=== PATIENT | female | born 1955 | race Caucasian/White ===

== ENCOUNTER 2016-12-21 14:07 | Inpatient (IN) | payer BC, OTHER ==
[2016-12-21 15:26] LABS: #Lymphocytes 0.3 thou/uL (1.20-3.40); #Neutrophils 7.2 thou/uL (1.40-6.50); %Eosinophils 0.2 % (0.0-10.0); %Lymphocytes 3.9 % (21.0-51.0); %Monocytes 0.2 % (0.0-10.0); Hematocrit 31.8 % (36.0-47.0); White Blood Cell (WBC) Count 7.5 thou/uL (4.8-10.8)
--- NOTE | 2016-12-21 15:27 | RAD ---
CHEST 1 VIEW: HISTORY: Fever. Driving home, near-syncope with hypotension. Stage IV bile duct cancer. COMPARISON: None. FINDINGS: Port catheter is in place with tip in good position. No pneumothorax. There is a nodular area left lung base. There is a density, possibly a gastric band, projecting ove r the left upper quadrant of the abdomen. IMPRESSION: Some faint left lower lobe densities may represent atelectasis or pneumonia. Followup recommended. POS: OFF
[2016-12-21 15:36] LABS: Lactic Acid - Sepsis 1.8 mmol/L (0.5-2.2)
[2016-12-21 15:42] LABS: ALT (SGPT) 14 U/L (8-55); AST (SGOT) 41 U/L (5-34); Alkaline Phosphatase 131 U/L (40-150); Anion Gap 17 mmol/L (10-20); BUN (Urea Nitrogen) 17 mg/dL (9.8-20.1); Bilirubin, Total 0.8 mg/dL (0.2-1.2); Calc. Creatinine Clearance 0 mL/min (70-130); Calcium 9.6 mg/dL (7.8-10.44); Carbon Dioxide 21 mmol/L (23-31); Chloride 101 mmol/L (98-107); Estimated GFR-MDRD 73; Globulin 3.3 g/dL (2.4-3.5); Protein, Total 7.1 g/dL (6.0-8.3)
[2016-12-21 16:32] LABS: Bilirubin Negative (Negative); Blood, Urine Trace (Negative); Glucose, Urine (Dipstick) Negative (Negative); Ketone, Urine Negative (Negative); Nitrite Negative (Negative); Protein, Urine (Dipstick) 30 mg/dL (Neg-Trace)
[2016-12-21 16:34] LABS: Bacteria/HPF None Seen HPF (None Seen); Hyaline Casts/LPF 4-6 HYALINE CAST LPF (0-3 Hyaline); RBC/HPF 0-3 HPF (0-3); Squamous Epithelial 0-3 HPF (0-3); WBC/HPF 0-3 HPF (0-3)
[2016-12-21] MEDS ORDERED: Naproxen 500 MG TAB ONE (17:11)
[2016-12-21] MEDS ORDERED: Bisacodyl 5 MG TAB PO PRN (18:23)
[2016-12-21] MEDS ORDERED: Acetaminophen 325 MG TAB PO PRN (18:23)
[2016-12-21] MEDS ORDERED: Mag-Al 1200 mg/1200 mg/30 ML UDCUP PO PRN (18:23)
[2016-12-21] MEDS ORDERED: Ondansetron ODT 4 MG TAB PO PRN (18:23)
[2016-12-21 19:10] VITALS: BMI 43.9
[2016-12-21] MEDS: Sodium Chloride 0.9% 1,000 ML IV SCH (20:30)
[2016-12-21 20:34] LABS: IRF 0.374 Ratio (0.163-0.362); Reticulocyte Count 2.3 % (0.5-1.5)
[2016-12-21] MEDS ORDERED: Docusate 100 MG CAP PO SCH (21:00)
[2016-12-21 21:04] LABS: Band 23 % (5-11); Hematocrit 27.9 % (36.0-47.0); Mean Platelet Volume 8.4 fL (7.4-10.4); Neutrophil 76 % (42-75); Red Blood Cell (RBC) Count 3.27 mill/uL (4.20-5.40); Vacuoles SLIGHT; White Blood Cell (WBC) Count 25.3 thou/uL (4.8-10.8)
[2016-12-21 22:15] LABS: Troponin I Less than 0.010 ng/mL (< 0.028)
[2016-12-21] MEDS ORDERED: traMADol HCl 50 MG TAB PO PRN (22:54)
[2016-12-21] MEDS ORDERED: Naproxen 500 MG TAB PO PRN (23:39)
[2016-12-21] MEDS ORDERED: diphenhydrAMINE HCl 25 MG CAP PO PRN (23:39)
[2016-12-21] MEDS ORDERED: Loratadine 10 MG TAB PO PRN (23:39)
[2016-12-21] MEDS ORDERED: Linezolid 600 MG in Premix Bag 1 BAG IVPB SCH (23:45)
--- NOTE | 2016-12-21 23:47 | CT ---
NONCONTRAST CHEST CT: History: 61-year-old female with history of fever and near syncope. History of Stage IV bile duct cancer. FINDINGS: Noncontrast study was performed, apparently because of patient's history of allergy. A noncontrast CT scan of the chest absolutely cannot evaluate for the presence or absence of pulmona ry embolism. There are multiple bilateral pulmonary nodules up to 0.8 cm, evidence for bilateral pul monary metastasis. There is a right subclavian catheter and injection port. Lap band in place. Post op cholecystectomy. No evidence for an overt mediastinal mass. No pleural effusion or pericardial effusion. IMPRESSION: Multiple bilateral pulmonary metastases. The possibility of pulmonary embolism absolutely cannot be evaluated on a chest CT without IV contrast. If that remains a clinical concern, I would recommend t reating the patient with allergy pre-treatment and performing a post contrast CT pulmonary angiogram or consider the possibility of a ventilation perfusion lung scan. Other findings as above. POS: JUANITA
[2016-12-22] MEDS: Sodium Chloride 0.9% 1,000 ML IV SCH ×4 (02:10→23:44)
[2016-12-22] MEDS: Cefepime 2 GM in Sodium Chloride 0.9% 100 ML IVPB SCH ×2 (03:15→15:52)
[2016-12-22 04:54] LABS: #Lymphocytes 0.5 thou/uL (1.20-3.40); #Monocytes 0.8 thou/uL (0.11-0.59); #Neutrophils 18.7 thou/uL (1.40-6.50); %Basophils 0.2 % (0.0-1.0); %Eosinophils 0.1 % (0.0-10.0); %Lymphocytes 2.6 % (21.0-51.0); %Monocytes 3.8 % (0.0-10.0); Hematocrit 25.9 % (36.0-47.0); Mean Platelet Volume 8.1 fL (7.4-10.4); Red Blood Cell (RBC) Count 3.01 mill/uL (4.20-5.40)
[2016-12-22 05:19] LABS: ALT (SGPT) 14 U/L (8-55); AST (SGOT) 40 U/L (5-34); Alkaline Phosphatase 96 U/L (40-150); Anion Gap 11 mmol/L (10-20); BUN (Urea Nitrogen) 12 mg/dL (9.8-20.1); Bilirubin, Total 0.6 mg/dL (0.2-1.2); Calc. Creatinine Clearance 164 mL/min (70-130); Calcium 8.6 mg/dL (7.8-10.44); Carbon Dioxide 21 mmol/L (23-31); Chloride 111 mmol/L (98-107); Estimated GFR-MDRD Greater than 90; Globulin 2.7 g/dL (2.4-3.5); Protein, Total 5.9 g/dL (6.0-8.3)
--- NOTE | 2016-12-22 05:52 | HP-2 ---
DATE OF ADMISSION: 12/21/2016 DATE OF SERVICE: 12/21/2016 CO-SIGNER: Timo Cherry M.D. CODE STATUS: FULL. PRIMARY CARE PHYSICIAN: Out of town from [place]. ATTENDING: Timo Cherry M.D. PGY-1: Lali Figueroa MD HISTORIAN: Patient. SPECIALIST: [facility], Dr. Broussard (primary physician) and Dr. Aguillon (trial M.D.). CHIEF COMPLAINT: Weakness. HISTORY OF PRESENT ILLNESS: A 61-year-old female with past medical history of cholangiocarcinoma wi th lung and liver mets, stage IV cholangiocarcinoma, hypertension and depression, presents with weak ness, nausea, and fatigue after shopping at a rest stop on her way back from getting labs performed at [facility]. Patient reports that she gets labs drawn twice a week at [facility] in regard to a clinical trial that she is completing there at this time. The patient also reports that she gets i nfusion treatments every 3 weeks and last week on Wednesday received a transfusion of packed red blood cells for a low hemoglobin. In regard to today, the patient said she felt weak and lightheaded and nauseous, which prompted her to visit the ED here. She was on her way back home to [place] from [facility] in [place]. She denies cough, congestion, fever, chest pain. She endorses some shortness of breath with exertion which has been going on for several weeks. She did desire a transfer closer to home in [place] however, the hospital in [place] was at full capacity. In the ER, the patient rec eived Naproxen, cefepime, and and 2 liters of normal saline. 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 PAST SURGICAL HISTORY: Cholecystectomy, hysterectomy, right knee replacement, lap band surgery. Co paulino and liver resection secondary to her cancer. ALLERGIES: ACETAMINOPHEN, IBUPROFEN, VANCOMYCIN (rash and throat itching), IV CONTRAST. MEDICATIONS: 1. Biotin. 2. Vitamin D 400 units. 3. Benadryl. 4. Colace. 5. Iron. 6. Claritin. 7. Naproxen. 8. Protonix 40 mg daily. 9. Tramadol 50 mg as needed for pain. 10. Valsartan/hydrochlorothiazide 320/12.5 mg daily. 11. Venlafaxine 275 mg daily. 12. Zofran 8 mg p.r.n. 13. Prednisone 50 mg taken before receiving contrast for CT. 14. Triamcinolone. FAMILY HISTORY: Noncontributory. SOCIAL HISTORY: Denies tobacco, alcohol, or drug use. REVIEW OF SYSTEMS: General: Endorses a decrease in appetite. Denies fevers and chills. Denies ni ght sweats. Endorses fatigue. Eyes: Denies vision changes or eye pain. ENT: Denies nasal conges tion, rhinorrhea, and sore throat. Respiratory: Denies cough, congestion. Endorses shortness of b reath, endorses exercise intolerance. Cardiovascular: Denies chest pain, palpitations, edema. GI: Endorses nausea, denies vomiting, diarrhea, constipation. Endorses some abdominal pain. Genitour inary: Denies incontinence, dysuria. Endorses polyuria. Denies discharge. Skin: Denies rashes, lesions, jaundice, itching. Musculoskeletal: Denies pain, tenderness, stiffness, swelling, arthral gias, endorses tremors. Neurologic: Endorses weakness. Denies numbness, syncope, seizures. Endor ses lightheadedness. Psychiatric: Denies anxiety, endorses depression. PHYSICAL EXAMINATION: VITAL SIGNS: Blood pressure 147/85, pulse of 107, respiratory rate 26, T-max 103, pulse ox 95% on r oom air, current weight 112 kilograms. GENERAL: Alert and oriented x4, no apparent distress. Well-developed, well-nourished, appropriatel y interactive. EYES: PERRLA, EOMI. Conjunctivae within normal limits. ENT: Tympanic membrane without bulging or erythema. Nasal mucosa within normal limits. Oropharynx within normal limits. NECK: Supple, no adenopathy, no thyromegaly, no bruits. CARDIOVASCULAR: Tachycardic, 2/6 systolic murmur. 2+ radial and pedal pulses. RESPIRATORY: Normal effort, no retractions, clear to auscultation bilaterally. SKIN: Warm and dry. No cyanosis or lesions. ABDOMEN: Soft, nontender to palpation. Bowel sounds in all 4 quadrants. No distension. No CVA te nderness. EXTREMITIES: No clubbing, cyanosis or edema. MUSCULOSKELETAL: Structure within normal limits. Tone within normal limits, 5/5 strength. Full ra nge of motion. NEUROLOGIC: No focal deficits. Sensation within normal limits, intact. Her cranial nerves II-XII intact. GCS 15. PSYCHIATRIC: Appropriate. LABORATORY DATA: CBC, white blood cell count 7.5, hemoglobin 10.2, hematocrit 38.1, platelets 267. Chemistry: Sodium 135, potassium 3.9, chloride 101, bicarbonate 21, BUN 17, creatinine 0.8, glucose 115, calcium 9.6, AST 41, ALT 14, alkaline phosphatase 131, total protein 7.1, albumin 3.8, total b ilirubin 0.8. Lactic acid 1.8, prior CBC on 12/14. White blood cell count 8.4, hemoglobin 8.5, hem atocrit 28.3, platelets 300. UA: Specific gravity 1.016, trace blood, 30 protein, small leukocyte esterase, no nitrites, no keto gisel, no glucose, no red blood cells, no white blood cells, no bacteria. EKG: Normal sinus rhythm. Chest x-ray faint lower lobe densities, atelectasis versus pneumonia. 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 1. Sepsis of unknown source. Differential diagnosis: Left lower pneumonia versus infusion port in fection versus delayed transfusion reaction versus pulmonary embolism. The patient is on immunomodu lators for her clinical trial regarding her cholangiocarcinoma with mets. The patient was started o n empiric antibiotic treatment of Levaquin, cefepime, and linezolid. A CT chest without contrast wa s ordered to evaluate advancement of metastasis to her lungs as well as evaluate for PE; however, th e patient is allergic to CONTRAST, but usually takes prednisone prior to receiving. Chest CT is wel l notified in the Medicine team, so they can further workup potential for pulmonary embolism (CT ayde st with contrast versus ventilation perfusion scan). Additional labs were ordered for hemolysis wor kup including LDH, peripheral smear, haptoglobin, retic count and indirect and direct Chary. The p atient was placed on sepsis maintenance fluids of 13 mg/kg. A repeat CBC and CMP were placed around in the morning. Blood cultures and urine cultures and port cultures were drawn. Patient was provi ded with tramadol p.r.n. for pain. 2. Stage IV cholangiocarcinoma with mets to her lungs and liver. Patient is on the immunomodulator therapy in a clinical trial at [facility]. The patient also received tramadol for pain. 3. Hypertension. We will restart patient's home medications. 4. Depression. We will restart patient's venlafaxine. 5. Gastroesophageal reflux disease. We will restart patient's Protonix. DISPOSITION AND LENGTH OF STAY: 3 days. Symptomatic medications will be provided. History and physical exam as well as management was discussed with Dr. Cherry.
--- NOTE | 2016-12-22 06:25 | PDOC.FM ---
Addendum entered and electronically signed by Ashley Rios DO 12/22/16 08 :45: Note: patient allergic to vancomycin Original Note: - Subjective Subjective: Patient doing fantastic this AM. No significant overnight events. She feels great. She was sitting in chair by bed this AM. She says she is much improved. Her fatigue has resolved and she feels back to normal. - Objective MAR Reviewed: Yes Vital Signs & Weight: Vital Signs (12 hours) Temp Pulse Resp BP Pulse Ox 12/22/16 04:00 98.1 F 80 16 100/56 L 96 12/22/16 00:57 98.6 F 82 18 107/61 94 L 12/21/16 23:45 98.6 F 82 18 107/61 94 L 12/21/16 20:48 99.7 F H 104 H 16 98 Result Diagrams: 12/22/16 04:44 12/22/16 04:44 Radiology Reviewed by me: Yes <Ashley Rios - Last Filed: 12/22/16 08:25> - Objective Vital Signs & Weight: Vital Signs (12 hours) Temp Pulse Resp BP Pulse Ox 12/23/16 07:48 99 F 83 16 97 12/23/16 07:42 99 F 83 16 161/75 H 97 12/23/16 04:00 98.7 F 82 18 122/72 97 12/23/16 00:00 98.7 F 70 18 111/62 100 12/22/16 23:59 98.7 F 70 18 111/62 100 I&O: 12/22/16 12/23/16 12/24/16 06:59 06:59 06:59 Intake Total 1205 4300 Balance 1205 4300 Result Diagrams: 12/23/16 04:30 12/23/16 04:30 <Jose Rafael Ramsey - Last Filed: 12/23/16 09:06> Phys Exam - Physical Examination Constitutional: NAD HEENT: moist MMs, sclera anicteric Neck: supple, full ROM Respiratory: no wheezing, no rales, no rhonchi, clear to auscultation bilateral Cardiovascular: RRR 2/6 systolic murmur Gastrointestinal: soft, non-tender, no distention, positive bowel sounds Musculoskeletal: no edema, pulses present Neurological: moves all 4 limbs Psychiatric: normal affect, A&O x 3 Skin: no rash, normal turgor, cap refill <2 seconds <Ashley Rios - Last Filed: 12/22/16 08:25> Dx/Plan (2) Normocytic normochromic anemia Code(s): D64.9 - ANEMIA, UNSPECIFIED Status: Acute Plan: -Hemolysis workup to include haptoglobin, LDH, reticulocyte index, indirect mik -Likely 2/2 anemia of chronic disease (3) Sepsis without acute organ dysfunction Code(s): A41.9 - SEPSIS, UNSPECIFIED ORGANISM Status: Resolved Plan: -Likely 2/2 LLL pneumonia vs. port infection vs. delayed hemolytic infusion reaction vs. pulmonary embolism -Chest xray: LLL infiltrate -Chest CT: Bilateral pulmonary mets from cholangiocarcinoma -Lactic acid: 1.8 -Tachycardic, tachypneic, elevated WBC -Hemolysis studies show reticulocyte index of 2.3; BM responsive -Fluid resuscitated with 30 ml/kg NS -Fluid maintenance at 13 ml/kg NS -Blood and urine cultures pending -Consider VQ perfusion scan or pretreatment prior to CT angio as patient is allergic to IV contrast; rule out PE (4) 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 Code(s): C78.00 - SECONDARY MALIGNANT NEOPLASM OF UNSPECIFIED LUNG; C22.1 - INTRAHEPATIC BILE DUCT CARCINOMA Status: Acute Plan: -Stage 4 -On immunomodulator therapy trial at [facility] -Mets to bilateral lungs -Last session of chemotherapy >5 weeks ago (5) HTN (hypertension) Code(s): I10 - ESSENTIAL (PRIMARY) HYPERTENSION Status: Acute Plan: -Continue valsartan, HCTZ -Monitor BP (6) Depression Code(s): F32.9 - MAJOR DEPRESSIVE DISORDER, SINGLE EPISODE, UNSPECIFIED Status : Acute Plan: -Continue venlafaxine (7) Left lower lobe pneumonia Code(s): J18.1 - LOBAR PNEUMONIA, UNSPECIFIED ORGANISM Status: Acute Plan: -Sepsis 2/2 LLL pneumonia -WBC 25 in immunocompromised patient ->90% neutrophils and 23% bands -Tachycardic, tachypneic -Patient on immunomodulator therapy at [facility] -Emperic treatment with cefepime, levoquin -Blood cultures pending -CXR shows LLL infiltrate -Chest CT shows bilateral pulmonary mets from cholangiocarcinoma -Consider procalcitonin -Consult infectious disease; Dr. Santacruz for recommendations regarding MRSA coverage <Ashley Rios - Last Filed: 12/22/16 08:25> Attending Addendum - Attending Addendum I personally evaluated the patient and discussed the management on DOS 12/[address] Rios. I agree with the History, Examination, Assessment and Plan documented above with any addition or exceptions noted below. At the time of my exam around 10:40 am she feels great. Sitting up in chair talking on phone. Lung: CTA on my exam. No rales, rhonchi or wheezes. Cor: RRR. Abdomen: soft, nontender. CXR LLL infitrate. CT report only mentions lung mets. Continue antibiotics. Dr. Santacruz consulted for antibiotic recommendations /consider addition of Zyvox. [facility] [place] [facility] <Jose Rafael Ramsey - Last Filed: 12/23/16 09:06>
[2016-12-22] MEDS: Valsartan 80 MG TAB PO SCH (08:36)
[2016-12-22] MEDS: Docusate 100 MG CAP PO SCH (08:36)
[2016-12-22] MEDS: Hydrochlorothiazide 25 MG TAB PO SCH (08:37)
[2016-12-22] MEDS: Venlafaxine HCl XR 75 MG CAP PO SCH (08:37)
[2016-12-22] MEDS: Enoxaparin Sodium 40 MG/0.4 ML SYRINGE SC SCH (08:38)
[2016-12-22] MEDS ORDERED: FLU VACC QS2017-18 36 mo. & older 0.5 ML SYRINGE IM ONE (09:00)
[2016-12-22] MEDS ORDERED: Potassium Chloride 20 MEQ TAB PO SCH ×2 (09:15→18:00)
--- NOTE | 2016-12-22 18:06 | CON ---
DATE OF CONSULTATION: 12/22/2016 REASON FOR CONSULTATION: Chills with leukocytosis. HISTORY OF PRESENT ILLNESS: A 61-year-old who has a history of metastatic cholangiocarcinoma with t he involvement of lungs and liver mostly, who is currently receiving experimental treatment at [facility] with some form of immunotherapy. The patient has a port in place for the past 3 years and joshua gomez was in her usual state of health returning from her latest visit to [facility] when she developed chills while stopping at a convenience store on the way to her home in [place]. She has had a gener al malaise with dizziness and could not get up from the toilet and called her and he came an d picked her up and had to bring her to [facility] because [facility] had no beds available. She was given IV cefepime and IV fluids and initial findings, BP 147/85, pulse 107, respiratory rat e 26, T-max 103, pulse 95% and the pertinent findings on the examination, she had a 2/6 systolic mur mur. Lung examination is normal. Abdomen is soft and nontender and initial laboratory data with a sodium of 135, creatinine 0.8, AST 41, ALT 14, and albumin 3.8. White cell count was 7.5, hemoglobi n 10.2, MCV 86, platelets 267 with 95% neutrophils. Urinalysis with 0-3 wbc's and 30 protein and we have 2 sets of blood cultures thus far no growth and urine culture no growth at [address] showed a few nodules consistent with metastatic cholangiocarcinoma, those are quite small. Current ly, Mr. uSe is sitting up by the bedside. She feels much improved and back to baseline pretty mu ch. No headaches, no visual symptoms, sore throat, odynophagia, dysphagia, no back pain, no cough o r sputum production or chest pain. No abdominal pain, diarrhea, or genitourinary symptoms. No join t symptoms. No neurological symptoms. PAST MEDICAL HISTORY: Metastatic cholangiocarcinoma, hypertension, depression. PAST SURGICAL HISTORY: Cholecystectomy, hysterectomy, knee replacement, Lap-Band surgery, colon and liver resection. ALLERGIES: IBUPROFEN, IODINE CONTRAST DYE, and VANCOMYCIN. MEDICATIONS: Biotin, vitamin D, Benadryl, Colace, iron, Claritin, naproxen, Protonix, tramadol, ariane sartan, hydrochlorothiazide, venlafaxine, Zofran, prednisone. FAMILY HISTORY: Noncontributory. SOCIAL HISTORY: Never smoker. PHYSICAL EXAMINATION: VITAL SIGNS: The temperature max 99.7, currently 98.5, blood pressure 118/77, pulse 90, respiration s 18, O2 sat 94%-96%. GENERAL: Appears in no distress. SKIN: A port is accessed. Skin examination is, otherwise, unremarkable. Port site without inflamm atory changes. No lymphadenopathy. HEENT: Ocular movements are conjugate. Sclerae white. Oral cavity moist, numerous teeth in place in fairly decent shape. NECK: Supple, no jugular venous distention or carotid bruits. LUNGS: With symmetric clear breath sounds. HEART: S1, S2, regular rate without murmurs. No S3 or S4. ABDOMEN: Soft, not distended or tender. No ascites. No bladder distention. EXTREMITIES: No joint inflammatory activity. The patient has trace edema in lower extremities. Pu lses are 1+ in dorsalis pedis. Plantar responses are flexor. No clonus. Strength in upper and low er extremities is 5/5. Cognitive function is intact. LABORATORY DATA: White cell count went up to 25,000, down to 20,000, hemoglobin 8, platelets 221, 9 2% neutrophils. Repeat chemistry with some decrease in potassium. Other than that unremarkable. ASSESSMENT: 1. Cholangiocarcinoma, metastatic lungs and liver. 2. Fever with chills, but no focal symptoms, otherwise. DISCUSSION: Differential diagnosis includes transient bacteremia with the source yet to be determin ed. Blood cultures are still pending. The ports, the biliary tracts are the main candidates. If t he blood cultures remain negative, then discharge planning on oral Augmentin or ciprofloxacin. If t hey turn positive, then we will have to address results according to the risk of colonization of the port. Thromboembolism is another possibility and we will go ahead and check her duplex ultrasound of lower extremities if not done yet. The index of suspicion is not high enough to justify doing a CT angio at this point in time.
--- NOTE | 2016-12-22 19:04 | ULT ---
BILATERAL LOWER EXTREMITY VENOUS DOPPLER WITH SPECTRAL ANALYSIS AND COLOR FLOW EVALUATION 12/22/16 HISTORY: Cholangiocarcinoma. Bilateral lower extremity edema. FINDINGS: Hdz scale, color flow, doppler evaluation, and spectral analysis of the bilateral lower extremity v enous structures is performed with 2D imaging. The bilateral lower extremity, common femoral, superf icial femoral, popliteal, posterior tibial, most proximal greater saphenous and profunda femoral vei ns are imaged. There is normal lumen compressibility, flow, and augmentation of the visualized deep venous structur es of bilateral lower extremities. IMPRESSION: No evidence of a DVT involving the visualized deep venous of the bilateral lower extremities. POS: PALOMO
[2016-12-23] MEDS: Cefepime 2 GM in Sodium Chloride 0.9% 100 ML IVPB SCH ×2 (03:46→15:49)
[2016-12-23] MEDS: Sodium Chloride 0.9% 1,000 ML IV SCH (03:49)
[2016-12-23 05:47] LABS: #Basophils 0.1 thou/uL (0.0-0.2); #Eosinphils 0.1 thou/uL (0.0-0.7); #Lymphocytes 0.8 thou/uL (1.20-3.40); #Neutrophils 6.3 thou/uL (1.40-6.50); %Basophils 0.7 % (0.0-1.0); %Eosinophils 1.7 % (0.0-10.0); %Lymphocytes 9.2 % (21.0-51.0); %Monocytes 12.2 % (0.0-10.0); Hematocrit 23.8 % (36.0-47.0); Mean Platelet Volume 8.7 fL (7.4-10.4); Red Blood Cell (RBC) Count 2.73 mill/uL (4.20-5.40); White Blood Cell (WBC) Count 8.3 thou/uL (4.8-10.8)
[2016-12-23 06:03] LABS: Anion Gap 10 mmol/L (10-20); BUN (Urea Nitrogen) 11 mg/dL (9.8-20.1); Calc. Creatinine Clearance 172 mL/min (70-130); Calcium 8.5 mg/dL (7.8-10.44); Carbon Dioxide 23 mmol/L (23-31); Chloride 110 mmol/L (98-107); Estimated GFR-MDRD Greater than 90
--- NOTE | 2016-12-23 06:30 | PDOC.FM ---
- Subjective Subjective: Patient doing well this AM. No significant overnight events. Venogram performed of bilateral LE where were negative. Patient denies shortness of breath or chest pain. Hemoglobin and hematocrit have dropped. Patient is currently asymptomatic. Will reevaluate during team rounds and consider blood transfusion. - Objective MAR Reviewed: Yes Vital Signs & Weight: Vital Signs (12 hours) Temp Pulse Resp BP Pulse Ox 12/23/16 04:00 98.7 F 82 18 122/72 97 12/23/16 00:00 98.7 F 70 18 111/62 100 12/22/16 23:59 98.7 F 70 18 111/62 100 12/22/16 20:00 99.0 F 85 16 99 12/22/16 19:30 99.0 F 85 16 111/62 99 I&O: 12/21/16 12/22/16 12/23/16 06:59 06:59 06:59 Intake Total 1205 4300 Balance 1205 4300 Result Diagrams: 12/23/16 04:30 12/23/16 04:30 <Ashley Rios - Last Filed: 12/23/16 08:25> - Objective Vital Signs & Weight: Vital Signs (12 hours) Temp Pulse Resp BP Pulse Ox 12/23/16 07:48 99 F 83 16 97 12/23/16 07:42 99 F 83 16 161/75 H 97 12/23/16 04:00 98.7 F 82 18 122/72 97 12/23/16 00:00 98.7 F 70 18 111/62 100 12/22/16 23:59 98.7 F 70 18 111/62 100 I&O: 12/22/16 12/23/16 12/24/16 06:59 06:59 06:59 Intake Total 1205 4300 Balance 1205 4300 Result Diagrams: 12/23/16 04:30 12/23/16 04:30 <Jose Rafael Ramsey - Last Filed: 12/23/16 11:35> Phys Exam - Physical Examination Constitutional: NAD HEENT: moist MMs, sclera anicteric Neck: full ROM Respiratory: no wheezing, no rales, no rhonchi, clear to auscultation bilateral Cardiovascular: RRR, no significant murmur, no rub Gastrointestinal: soft, non-tender, no distention, positive bowel sounds Large mass felt in left epigastric region Musculoskeletal: no edema, pulses present Neurological: moves all 4 limbs Psychiatric: normal affect, A&O x 3 Skin: no rash, cap refill <2 seconds <Ashley Rios - Last Filed: 12/23/16 08:25> Dx/Plan (1) Bacteremia Code(s): R78.81 - BACTEREMIA Status: Acute Plan: -Transient; likely 2/2 biliary origin or port -Patient presented septic -WBC 25 in immunocompromised patient; has since downtrended to 8.3 ->90% neutrophils and 23% bands on presentation; now <80% -Patient on immunomodulator therapy at [facility] -Emperic treatment with cefepime, levoquin -Blood cultures pending; if positive, treat according to organism/sensitivities -If blood cx negative discharge on oral augmentin and ciprofloxacin -CXR shows questionable LLL infiltrate not seen on CT -Chest CT shows bilateral pulmonary mets from cholangiocarcinoma -Infectious disease consulted; greatly appreciate recommendations (2) Normocytic normochromic anemia Code(s): D64.9 - ANEMIA, UNSPECIFIED Status: Acute Plan: -Hemolysis workup to include haptoglobin, LDH, reticulocyte index, indirect mik -Likely 2/2 anemia of chronic disease -Hg 7.4 this AM, Hct 23.8 this AM -Patient asymptomatic -Worsening anemia vs. dilutional effect -D/C fluids -Consider blood transfusion; particularly if patient becomes symptomatic (3) Sepsis without acute organ dysfunction Code(s): A41.9 - SEPSIS, UNSPECIFIED ORGANISM Status: Resolved Plan: -Likely 2/2 LLL pneumonia vs. port infection vs. delayed hemolytic infusion reaction vs. pulmonary embolism -Chest xray: questionable LLL infiltrate -Chest CT: Bilateral pulmonary mets from cholangiocarcinoma -Lactic acid: 1.8 -Hemolysis studies show reticulocyte index of 2.3; BM responsive -Fluid resuscitated with 30 ml/kg NS -Fluid maintenance at 13 ml/kg NS -Blood and urine cultures pending; negative to date -Infectious disease consulted; greatly appreciate recommendations -Venogram of bilateral LE performed; no evidence of DVT (4) 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 Code(s): C78.00 - SECONDARY MALIGNANT NEOPLASM OF UNSPECIFIED LUNG; C22.1 - INTRAHEPATIC BILE DUCT CARCINOMA Status: Acute Plan: -Stage 4 -On immunomodulator therapy trial at [facility] -Mets to bilateral lungs and liver -Last session of chemotherapy >5 weeks ago (5) HTN (hypertension) Code(s): I10 - ESSENTIAL (PRIMARY) HYPERTENSION Status: Acute Plan: -Continue valsartan, HCTZ -Monitor BP (6) Depression Code(s): F32.9 - MAJOR DEPRESSIVE DISORDER, SINGLE EPISODE, UNSPECIFIED Status : Acute Plan: -Continue venlafaxine <Ashley Rios - Last Filed: 12/23/16 08:25> Attending Addendum - Attending Addendum I personally evaluated the patient and discussed the management with Dr. Rios. I agree with the History, Examination, Assessment and Plan documented above with any addition or exceptions noted below. Afebrile, V/S stable & normal. Feels well. Exam as documented above. Hb 7.4. Thus far no signs of hemolysis. Doubt anemia is due to delayed transfusion reaction. I Agree with d/c IV fluids and monitor Hb/anemia. A: Sepsis with suspected acute bacteremia due to unknown source. Metastatic cholangiocarcinoma on immunotherapy. Immunosuppresion. Awaiting blood and port cultures to determine course of treatment and to make recommendations for discharge. Patient & are anxious for discharge due to 10:30 am appt tomorrow at [facility] for follow up of her immunotherapy study drug. Recheck cultures and CBC at or after 8 pm tonight and consider early a.m. d/c tomorrow if cultures negative and stable. [facility] <Jose Rafael Ramsey - Last Filed: 12/23/16 11:35>
[2016-12-23] MEDS ORDERED: Sodium Chloride 0.9% 1,000 ML IV SCH (08:40)
[2016-12-23] MEDS: Venlafaxine HCl XR 75 MG CAP PO SCH (09:26)
[2016-12-23] MEDS: Hydrochlorothiazide 25 MG TAB PO SCH (09:26)
[2016-12-23] MEDS: Docusate 100 MG CAP PO SCH (09:26)
[2016-12-23] MEDS: Valsartan 80 MG TAB PO SCH (09:26)
[2016-12-23] MEDS: Enoxaparin Sodium 40 MG/0.4 ML SYRINGE SC SCH (09:27)
[2016-12-23] MEDS: BIOTIN 5000 MCG PO SCH (12:04)
--- NOTE | 2016-12-23 18:31 | PRG ---
DATE OF SERVICE: 12/23/2016 SUBJECTIVE: Feeling better, sitting up by the bedside. No headaches. No sore throat or cough. No chest pain, no abdominal pain or diarrhea. No genitourinary symptoms. OBJECTIVE: VITAL SIGNS: Temperature has been normal, blood pressure 113/54, pulse 80, respirations 18, and O2 sat 100%. GENERAL: Appears in no distress. HEENT: Ocular movements are conjugate. LUNGS: Clear. CARDIOVASCULAR: S1, S2, regular rate. Port without any inflammatory changes. ABDOMEN: Soft. Moves all extremities equally. Voiding without difficulty. LABORATORY DATA: White cell count down to 8.3, hemoglobin 7.4, and platelets 189. Sodium 139, creat inine 0.63, AST 40. Cultures thus far negative from blood and urine, we have four sets of cultures, no growth to date. Venogram was negative. ASSESSMENT AND DISCUSSION: Cholangiocarcinoma, metastatic with lungs and liver involvement, fever w ith chills, but no focal symptoms. If blood cultures remain negative by tomorrow, could discharge o n oral Levaquin for about 7-10 days. Again, the main possibilities are transient bacteremia from th e bile ducts and gastrointestinal tract is the most likely scenario.
[2016-12-23 20:09] LABS: Hematocrit 23.8 % (36.0-47.0); Mean Platelet Volume 8.3 fL (7.4-10.4); Red Blood Cell (RBC) Count 2.76 mill/uL (4.20-5.40); White Blood Cell (WBC) Count 7.8 thou/uL (4.8-10.8)
[2016-12-23 20:26] LABS: Anisocytosis SLIGHT = 6-15 cells (100X) (0-5/hpf); Band 12 % (5-11); Hypochromia SLIGHT = 6-15 cells (100X) (0-5/hpf); Neutrophil 71 % (42-75); Ovalocytes SLIGHT = 2-5 cells (100X) (0-1/hpf); Polychromasia SLIGHT = 2-3 cells (100X) (0-2/hpf); Reactive Lymphocytes 4 % (0-10); Schistocytes SLIGHT = 2-5 cells (100X) (0-1/hpf)
[2016-12-24] MEDS: Cefepime 2 GM in Sodium Chloride 0.9% 100 ML IVPB SCH (02:50)
[2016-12-24] MEDS ORDERED: Activase 2 MG VIAL CATH SCH (05:30)
[2016-12-24] MEDS ORDERED: Sterile Water 10 ML VIAL FS SCH (05:30)
[2016-12-24 05:41] LABS: Hematocrit 24.5 % (36.0-47.0); Mean Platelet Volume 8.2 fL (7.4-10.4); Red Blood Cell (RBC) Count 2.84 mill/uL (4.20-5.40)
--- NOTE | 2016-12-24 06:27 | PDOC.FM ---
- Subjective Subjective: Patient doing well this AM. No significant overnight events. Patient denies fatigue, dizziness, or feeling faint. She has an appointment at [facility] this morning. It was explained that her Hg has remained stable, but to follow very closely with oncologist and other specialists as she may need a transfusion in the near future. - Objective MAR Reviewed: Yes Vital Signs & Weight: Vital Signs (12 hours) Temp Pulse Resp BP Pulse Ox 12/24/16 04:00 97 F L 80 20 120/63 98 12/24/16 00:00 98.1 F 76 20 120/67 97 12/23/16 20:00 98 F 83 20 121/69 100 I&O: 12/22/16 12/23/16 12/24/16 06:59 06:59 06:59 Intake Total 1205 4300 2049 Balance 1205 4300 2049 Result Diagrams: 12/24/16 05:33 12/23/16 04:30 Phys Exam - Physical Examination Constitutional: NAD HEENT: moist MMs, sclera anicteric Neck: supple, full ROM Respiratory: no wheezing, no rales, no rhonchi, clear to auscultation bilateral Cardiovascular: RRR 2/6 systolic murmur Gastrointestinal: soft, non-tender, no distention, positive bowel sounds Firm mass palpated in mid epigastric region Musculoskeletal: no edema, pulses present Neurological: moves all 4 limbs Psychiatric: normal affect, A&O x 3 Skin: no rash, normal turgor, cap refill <2 seconds Dx/Plan (1) Normocytic normochromic anemia Code(s): D64.9 - ANEMIA, UNSPECIFIED Status: Acute Plan: -Hemolysis workup to include haptoglobin, LDH, reticulocyte index, indirect mik; LDH wnl, reticulocyte count >2 (BM responsive), pending haptoglobin -Likely 2/2 anemia of chronic disease -Hg 7.5 this AM -Patient asymptomatic -Likely mixed component of worsening anemia and dilutional effect; stopped fluids yesterday and rechecked. Hg has remained stable. Advised patient to follow closely with oncologist and other specialists as she might need transfusion in near future -Will require close follow up with oncologist (2) Bacteremia Code(s): R78.81 - BACTEREMIA Status: Resolved Plan: -Transient; likely 2/2 biliary origin or port -Patient presented septic -WBC 25 in immunocompromised patient; has since downtrended to 6.0 ->90% neutrophils and 23% bands on presentation; now <80% -Patient on immunomodulator therapy at [facility] -Emperic treatment with cefepime, levoquin while in hospital -Blood cultures negative -Discharge on oral levoquin x7-10 days per ID -CXR shows questionable LLL infiltrate not seen on CT -Chest CT shows bilateral pulmonary mets from cholangiocarcinoma -Infectious disease consulted; greatly appreciate recommendations (3) 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 Code(s): C78.00 - SECONDARY MALIGNANT NEOPLASM OF UNSPECIFIED LUNG; C22.1 - INTRAHEPATIC BILE DUCT CARCINOMA Status: Acute Plan: -Stage 4 -On immunomodulator therapy trial at [facility] -Mets to bilateral lungs and liver -Last session of chemotherapy >5 weeks ago (4) HTN (hypertension) Code(s): I10 - ESSENTIAL (PRIMARY) HYPERTENSION Status: Acute Plan: -Continue valsartan, HCTZ -Monitor BP (5) Depression Code(s): F32.9 - MAJOR DEPRESSIVE DISORDER, SINGLE EPISODE, UNSPECIFIED Status : Acute Plan: -Continue venlafaxine (6) Sepsis without acute organ dysfunction Code(s): A41.9 - SEPSIS, UNSPECIFIED ORGANISM Status: Resolved Plan: -Likely 2/2 transient bacteremia from port or biliary tract -Chest xray: questionable LLL infiltrate -Chest CT: Bilateral pulmonary mets from cholangiocarcinoma -Lactic acid: 1.8 -Hemolysis studies show reticulocyte index of 2.3; BM responsive -Fluid resuscitated with 30 ml/kg NS -Fluid maintenance at 13 ml/kg NS -Blood and urine cultures negative -Pending final port cultures -Infectious disease consulted; greatly appreciate recommendations -Venogram of bilateral LE performed; no evidence of DVT
[2016-12-24 08:20] VITALS: BP 136/81; TEMP 98.4
--- NOTE | 2016-12-25 06:42 | DIS-2 ---
DATE OF ADMISSION: 12/21/2016 DATE OF DISCHARGE: 12/24/2016 RESIDENT: Ashley Rios DO ADMITTING ATTENDING: Dr. Timo Cherry. DISCHARGE ATTENDING: Dr. Jose Rafael Ramsey. CONSULTATIONS 1. Dr. Santacruz, Infectious Disease. 2. Case management. PROCEDURES: 1. Chest x-ray, some faint lower lobe densities which may represent atelectasis versus pneumonia. Followup was recommended. 2. Chest CT, multiple bilateral pulmonary metastases, a possibility of pulmonary embolism, cannot be completely evaluated without a CT chest with contrast. 3. Venogram, no evidence of DVT involving the visualized deep venous vasculature of bilateral lower extremities. PRIMARY DIAGNOSES: 1. Sepsis secondary to transient bacteremia. 2. Acute on chronic normocytic anemia. 3. Transient bacteremia. 4. Cholangiocarcinoma with metastasis to lung and liver. SECONDARY DIAGNOSES: 1. Hypertension. 2. Depression. DISCHARGE MEDICATIONS: 1. Hydrochlorothiazide 12.5 mg oral daily. 2. Levofloxacin 750 mg oral daily x10 days. 3. Biotin 1 tablet oral daily. 4. Loratadine 1 tablet oral daily as needed. 5. Docusate sodium 1 tablet oral daily. 6. Vitamin D3 of 2000 units oral daily. 7. Protonix 1 tablet oral daily. 8. Ondansetron 1 tablet oral every 6 hours as needed. 9. Naproxen 250 mg oral every 6 hours as needed. 10. Venlafaxine 150 mg oral daily. 11. Valsartan/hydrochlorothiazide 1 tablet oral daily. 12. Tramadol 1 tablet oral every 6 hours as needed. 13. Prednisone 1 tablet oral as directed. 14. Diphenhydramine 1 tablet oral daily as needed. DISCONTINUED MEDICATIONS: None. HISTORY OF PRESENT ILLNESS AND HOSPITAL COURSE: This is a 61-year-old female with past medical history of stage IV cholangiocarcinoma with lung and liver mets, hypertension and depression that presents with weakness, nausea, and fatigue after stopping at a rest stop on her way back from getting labs performed at [facility]. Patient reports that she gets labs drawn twice a week for a clinical trial that she is completing at this time. The patient also reports that she gets infusion treatments approximately every 3 weeks for low hemoglobin. She last received a transfusion on Wednesday of last week. She received 2 units at that time. On admission, she felt weak, lightheaded and nauseous, which prompted her to visit the ED. She was on her way back to [place] from [facility] in [place]. She denies cough, congestion, fever, chest pain. She endorses some shortness of breath with exertion which has been going on for several months. She did desire transfer closer to home in [place] where her oncologist resides, however [place] was at full capacity and transfer was not able to be initiated. In the ER, the patient received naproxen, cefepime and 2 liters of normal saline. The patient remained stable throughout the course of her hospital stay. She was fluid resuscitated with 30 mL per kilogram bolus as well as 30 mL per kilogram maintenance fluids for 2 days. The patient was started on cefepime in the ER. Levaquin was added to the medication regimen for coverage of additional organisms until blood culture and port cultures resulted. Dr. Santacruz was consulted as there was initial thought that MRSA might need to be considered. The patient is allergic to VANCOMYCIN. Dr. Santacruz recommended continuation of current therapy until final cultures resulted. At that time, he recommended that appropriate coverage be provided for the organisms and if no organisms grew in the culture, he recommended 10 days of outpatient Levaquin. Of note, the patient improved drastically over the course of the night. The next day she was not experiencing any fatigue. She was asymptomatic. She felt great. Patient's hemoglobin did continue to drop over the course of her stay. Of note , it was 10.2 on admission and dropped down to 7.4. Repeat was ordered after fluids were discontinued and hemoglobin remained stable around 7.5. The patient was advised that she might need a transfusion in the near future, although it is not indicated at this time. Hemolysis labs were performed. Haptoglobin was slightly elevated at 211 and retic count was slightly elevated at 2.3. There are no active signs of hemolysis at this time and bone marrow seems to be responsive. Sodium was noted to be 139, potassium 3.6, chloride 110 , bicarb 23, BUN 11, creatinine 0.63, glucose 91, calcium 8.5. On the second day of admission, potassium did increase after one dose of 40 mEq of potassium chloride. The ports, urine and blood cultures were all negative at 48 hours. Thus, patient was sent home on Levaquin 750 mg oral daily for 10 days per recommendations of Infectious Disease. The patient did have to leave in the morning of discharge for her blood work to be performed at [facility] for the immunotherapy trial she is a part of. She was discharged with ample time to get there and she was stable upon discharge. DISPOSITION: Stable. DISCHARGE INSTRUCTIONS: 1. Location: Home. 2. Diet: Regular. 3. Activity: No restrictions. 4. Followup: The patient is to follow up with her oncologist and other specialists within the next 7 days if not sooner for further evaluation and management of her cholangiocarcinoma. The patient may require a blood transfusion in the near future. This was described at length with patient. She is in understanding of the necessity for followup and in agreement with the plan. DEBRA
== END 2016-12-24 08:31 | disposition home or self-care (01) | DRG 871 ==
LOC: ERS 14:07 → 2SE 19:00 → ONC 12-22 07:48
PROVIDERS: ADMIT Family Medicine; ATTEND Family Medicine
DX: A41.9 Sepsis, unspecified organism (principal); J18.9 Pneumonia, unspecified organism; C78.00 Secondary malignant neoplasm of unspecified lung; C22.1 Intrahepatic bile duct carcinoma; C78.7 Secondary malignant neoplasm of liver and intrahepatic bile duct; D64.9 Anemia, unspecified; I10 Essential (primary) hypertension; K21.9 Gastro-esophageal reflux disease without esophagitis; Z98.84 Bariatric surgery status; Z90.710 Acquired absence of both cervix and uterus; Z91.041 Radiographic dye allergy status; F32.9 Major depressive disorder, single episode, unspecified; Z88.1 Allergy status to other antibiotic agents
CPT/HCPCS: 36415; 71010; 71250; 80048; 80053; 81003; 81015; 83010; 83605; 83615; 84484; 85025; 85027; 85046; 85060; 86850; 86900; 86901; 87040; 87086; 93005; 93970; 96361; 96365; A4216; J0692; J1642; J1650; J1956; J2997; J7050